=== PATIENT | male | born 1970 | race Caucasian/White ===

== ENCOUNTER 2022-04-30 11:14 | Outpatient (CLI) | payer BC, SELFPAY ==
[2022-04-30 13:07] LABS: Alanine Aminotransferase 23 U/L (6-50); Albumin Level 4.6 g/dL (3.5-5.1); Alkaline Phosphatase 72 U/L (38-126); Anion Gap 7 mmol/L (8-16); Aspartate Amino Transferase 39 U/L (17-59); Bilirubin,Total 0.7 mg/dL (0.2-1.3); Blood Urea Nitrogen 14 mg/dL (9-20); Calcium 9.2 mg/dL (8.4-10.2); Carbon Dioxide 28 mmol/L (22-30); Chloride 102 mmol/L (98-107); Cholesterol 158 mg/dL (0-200); Estimated Glomerular Filt Rate > 60; Glucose 170 mg/dL (65-110); HDL Direct 57 mg/dL; Potassium 4.5 mmol/L (3.4-5.0); Sodium 137 mmol/L (137-145); Triglycerides 105 mg/dL (<150)
[2022-04-30 13:19] LABS: LDL Cholesterol Direct 73 mg/dL
[2022-04-30 13:40] LABS: Creatinine Urine 76.6 mg/dL
[2022-04-30 13:47] LABS: MALB Creatinine Ratio < 7.8 mg/g (0-30); Microalbumin Urine Random < 6.0 mg/L (0-16.7)
[2022-05-04 18:54] LABS: C-Peptide 0.58 ng/mL (0.80-3.85)
== END 2022-04-30 11:15 | disposition home or self-care (01) ==
LOC: ANHWCLAB 11:16
PROVIDERS: PCP Physician Assistant; Visit Provider Internal Medicine Endocrinology, Diabetes & Metabolism
DX: E11.65 Type 2 diabetes mellitus with hyperglycemia (principal)
CPT/HCPCS: 36415; 80053; 80061; 82043; 82607; 84443; 84681

== ENCOUNTER 2022-12-07 01:12 | Day surgery (SDC) | payer BC, SELFPAY ==
[2022-11-19 11:28] VITALS: BMI 25.4
--- NOTE | 2022-12-06 19:04 | PM.HPGS ---
History of Present Illness History of Present Illness Consent: Risks, benefits, and alternatives have been discussed and questions answered. Patient agrees to proceed with procedure. Chief complaint: neoplasm screening Narrative: Raffy Vora is a 52 year old male who is referred for colon cancer screening. Review of Systems Review of Systems: All systems reviewed & are unremarkable except as noted in HPI and below PMFSH Past Medical History Medical History Pure hypercholesterolemia, unspecified Testicular hypofunction Surgical History Surgical History History of tonsillectomy and adenoidectomy Family History Family History Father Acute myocardial infarction, Onset Age: 48 Hypertension Grandparent Heart disease CABG Carcinoma of colon Colon polyp Malignant neoplasm of prostate Other Diabetes mellitus Social History Social History Smoking status: Never smoker Second hand tobacco smoke exposure: No Alcohol intake: current Drinks per week: 8 Substance use: never Substance use type: does not use Living arrangements: with family Occupation/Education: occupation Gender identity (if verbalized by the patient): Male Sexual Orientation (if Verbalized by the Patient): Straight or Heterosexual Spiritual care concerns: No Agree to blood products: Yes Meds Home Medications and Allergies Home Medications Medication Instructions Recorded Confirmed Type aspirin 81 mg tablet,delayed 81 mg PO DAILY 05/09/21 12/07/22 History release (Adult Low Dose Aspirin) pen needle, diabetic 31 gauge x #100 ea 08/19/21 12/07/22 Rx 3/16 (BD Ultra-Fine Mini Pen Needle) flash glucose sensor (FreeStyle #2 kits 04/17/22 12/07/22 Rx Sher 14 Day Sensor kit) glucagon 3 mg/actuation nasal 3 mg intranasal ONCE PRN 04/30/22 12/07/22 Rx spray (Baqsimi) hypoglycemia #2 ea glucose 4 gram chewable tablet 16 g PO Q15M PRN hypoglycemia #90 04/30/22 12/07/22 Rx (Dex4 Glucose) tabs rosuvastatin 10 mg tablet 10 mg PO DAILY #90 tabs 05/22/22 12/07/22 Rx testosterone cypionate 200 mg/mL 300 mg (1.5 mL) IM .every 3 weeks 05/22/22 12/07/22 Rx intramuscular oil #6 mL blood-glucose sensor (Dexcom G6 #9 ea 06/09/22 12/07/22 Rx Sensor device) blood-glucose transmitter (Dexcom #1 ea 06/09/22 12/07/22 Rx G6 Transmitter device) insulin lispro 100 unit/mL 100 unit continuous subcutaneous 08/20/22 12/07/22 Rx subcutaneous solution (Humalog infusion DAILY 90 days #90 mL U-100 Insulin) sildenafil 100 mg tablet 100 mg PO DAILY PRN sexual 11/12/22 12/07/22 Rx activity #18 tabs Allergies Allergy/AdvReac Type Severity Reaction Status Date / Time No Known Allergies Allergy Verified 12/07/22 08:48 Exam Resp: Auscultation: clear to auscultation bilaterally Cardio: Rate: regular rate Rhythm: regular rhythm GI: GI Palp: Yes Soft to palpation and No Tenderness to palpation present (GI) Assessment and Plan Assessment and plan (1) Colon cancer screening: Code(s): Z12.11 - Encounter for screening for malignant neoplasm of colon Status: Acute Assessment and Plan: Colonoscopy with possible biopsy or polypectomy or cautery or injection of substances.
[2022-12-07 08:50] VITALS: BP 106/69; PULSE 73; RESP 16; TEMP 36.5; O2SAT 98; BMI 25.9
[2022-12-07] MEDS: LACTATED RINGERS 1,000 ML 150 ML IV CONT (09:03)
--- NOTE | 2022-12-07 09:26 | WPDANESEPPF ---
Anes - Initial Pre Proc Eval Procedure: Operation Date: 12/07/22 10:00 Proposed Procedures p Screening Colonoscopy - Parth Buitrago MD Date/Time: 12/07/22 09:26 Surgeon: Parth Buitrago MD Pre Op Diagnosis: neoplasm screening Patient Data Age: 52 Gender: M Height: 1.83 m Weight: 86.9 kg Last Vital Signs Temp 36.5 C 12/07/22 08:50 Pulse 73 12/07/22 08:50 Resp 16 12/07/22 08:50 BP 106/69 12/07/22 08:50 Pulse Ox 98 12/07/22 08:50 O2 Del Method Room Air 12/07/22 08:50 Allergies Allergy/AdvReac Type Severity Reaction Status Date / Time No Known Allergies Allergy Verified 12/07/22 08:48 Home Medications Medication Instructions Recorded Confirmed Type aspirin 81 mg tablet,delayed 81 mg PO DAILY 05/09/21 12/07/22 History release (Adult Low Dose Aspirin) pen needle, diabetic 31 gauge x #100 ea 08/19/21 12/07/22 Rx 3/16 (BD Ultra-Fine Mini Pen Needle) flash glucose sensor (FreeStyle #2 kits 04/17/22 12/07/22 Rx Sher 14 Day Sensor kit) glucagon 3 mg/actuation nasal 3 mg intranasal ONCE PRN 04/30/22 12/07/22 Rx spray (Baqsimi) hypoglycemia #2 ea glucose 4 gram chewable tablet 16 g PO Q15M PRN hypoglycemia #90 04/30/22 12/07/22 Rx (Dex4 Glucose) tabs rosuvastatin 10 mg tablet 10 mg PO DAILY #90 tabs 05/22/22 12/07/22 Rx testosterone cypionate 200 mg/mL 300 mg (1.5 mL) IM .every 3 weeks 05/22/22 12/07/22 Rx intramuscular oil #6 mL blood-glucose sensor (Dexcom G6 #9 ea 06/09/22 12/07/22 Rx Sensor device) blood-glucose transmitter (Dexcom #1 ea 06/09/22 12/07/22 Rx G6 Transmitter device) insulin lispro 100 unit/mL 100 unit continuous subcutaneous 08/20/22 12/07/22 Rx subcutaneous solution (Humalog infusion DAILY 90 days #90 mL U-100 Insulin) sildenafil 100 mg tablet 100 mg PO DAILY PRN sexual 07/27/23 08/21/23 Rx activity #18 tabs Patient hx anesthesia problems: none Family hx anesthesia problems: none Results Review: All pre-operative results and documents have been reviewed as part of the pre-operative evaluation. [facility] Past Medical History Medical History Pure hypercholesterolemia, unspecified Testicular hypofunction Surgical History Surgical History History of tonsillectomy and adenoidectomy Family History Family History Father Acute myocardial infarction, Onset Age: 48 Hypertension Grandparent Heart disease CABG Carcinoma of colon Colon polyp Malignant neoplasm of prostate Other Diabetes mellitus Social History Social History Smoking status: Never smoker Second hand tobacco smoke exposure: No Alcohol intake: current Drinks per week: 8 Substance use: never Substance use type: does not use Living arrangements: with family Occupation/Education: occupation Gender identity (if verbalized by the patient): Male Sexual Orientation (if Verbalized by the Patient): Straight or Heterosexual Spiritual care concerns: No Agree to blood products: Yes Anes - Eval Final PreProcedure Day of Procedure 12/07/22 09:26 Patient weight: normal Heart: regular rate and rhythm Lungs: clear to auscultation Airway: Mallampati scale class II Neurological: alert and oriented Last oral intake: >/= 8 hours ASA classification: II Emergent: no Anesthetic plan: proceed Anesthesia type and monitoring: general GIVS and standard monitoring Results Review: All pre-operative results and documents have been reviewed as part of the pre-operative evaluation. Informed Consent: The patient's anesthetic plan and its attendant risks and benefits were discussed with the patient/family/POA. Questions were solicited and answers provided to the satisfaction of the patient/family/POA.
[2022-12-07] MEDS: SIMETHICONE ORAL SUSPENSION 20 MG/0.3 ML 30 ML BOTTLE 0.6 ML IRRIGATION (10:09)
[2022-12-07 10:20] VITALS: BP 117/74; PULSE 90; RESP 21; O2SAT 90
[2022-12-07 10:30] VITALS: BP 119/63; PULSE 81; RESP 21; O2SAT 90
[2022-12-07 10:40] VITALS: BP 113/64; PULSE 78; RESP 21; O2SAT 90
[2022-12-07 17:18] LABS: Glucose Point of Care 230 mg/dl (65-105)
[2022-12-08 14:04] LABS: Glucose Point of Care 249 mg/dl (65-105)
== END 2022-12-07 10:50 | disposition home or self-care (01) ==
PROVIDERS: PCP Family Medicine Adolescent Medicine; Visit Provider Internal Medicine Gastroenterology
PROC: 0DJD8ZZ Inspection of Lower Intestinal Tract, Via Natural or Artificial Opening Endoscopic (ICD-10-PCS; CPT 45378; principal; 2022-12-07 10:00)
DX: Z12.11 Encounter for screening for malignant neoplasm of colon (principal); K57.30 Diverticulosis of large intestine without perforation or abscess without bleeding; D12.5 Benign neoplasm of sigmoid colon; E78.00 Pure hypercholesterolemia, unspecified; Z79.82 Long term (current) use of aspirin; Z79.4 Long term (current) use of insulin
CPT/HCPCS: 45385; 82948; 88305; J2704; J7120